=== PATIENT | female | born 1950 | race Caucasian/White ===

== ENCOUNTER 2016-04-20 17:59 | Emergency (ER) | payer OTHER ==
--- NOTE | 2016-04-21 06:18 | US ---
EXAMINATION: DUPLEX VENOUS DOPPLER ULTRASOUND:LEFT LOWER EXTREMITY CLINICAL INDICATION: Left lower committee swelling and pain. COMPARISON: None TECHNIQUE: Both grayscale imaging and Doppler interrogation with spectral analysis and color flow was performed. Compression and flow with augmentation was also utilized. The common femoral vein to the posterior tibial and peroneal veins were assessed. FINDINGS:Appropriate compressibility and flow is demonstrated in the left common femoral, superficial femoral, popliteal, and peroneal and posterior tibial veins proximally. Normal Doppler flow with augmentation was also elicited. IMPRESSION: No evidence of left lower extremity deep venous thrombosis. Findings were communicated by [facility] to the emergency department at: 1923 hours 04/20/2016
== END 2016-04-20 19:59 | disposition home or self-care (01) ==
LOC: ED 17:59
DX: M79.89 Other specified soft tissue disorders (principal); I10 Essential (primary) hypertension; E66.9 Obesity, unspecified